=== PATIENT | female | born 1995 | race African-American/Black ===

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

== ENCOUNTER → 2017-04-13 | Outpatient (CLI) | payer OTHER ==
--- NOTE | 2017-04-13 11:05 | REP ---
Clinical: Anatomical evaluation. Comparison: None . Findings: Examination demonstrates a single live intrauterine in cephalic presentation. motion is identified by technologist. Placenta is noted right fundal and grade zero without evidence for placenta previa or abruption. Amniotic fluid volume is normal. Cervix measures 3.9 cm in length and appears closed. No evidence for nuchal cord. Gestational age by LMP 26 weeks 5 days with SB 07/15/2017 . Gestational age by current measurements 22 weeks 0 days with SB 08/17/2017 . FHR equals 139 beats per minute. BPD 5.4 cm 22 weeks 3 days HC 20.2 cm 22 weeks 2 days AC 16.7 cm 21 weeks 5 days FL 3.9 cm 22 weeks 3 days HL 3.7 cm 23 weeks 0 days HC/AC ratio 1.21 Estimated weight 474 grams ( 49th percentile based on age by current measurements ). Anatomical assessment demonstrates normal structures including cranium, choroid plexus, cavum, cerebellum/posterior fossa, facial features, lungs, four-chamber heart/ventricular outflow tracts, diaphragm, stomach, cord insertion/three-vessel cord, kidneys/bladder, spine, and extremities. Impression: Single live intrauterine in cephalic presentation. Anatomical assessment is complete and normal. Signed by Jonah Lozano MD 04/13/2017 10:56 A
[2017-04-13 12:22] LABS: BASO # 0.1 10^3/uL (0.0-0.2); BASO % 0.4 % (0.0-1.0); EOS # 0.2 10^3/uL (0.0-0.50); IMMATURE GRANULOCYTE % 0.9 % (0-0); LYMPH % 17.4 % (24.0-44.0); MEAN CORPUSCULAR HGB CONC 36.4 g/dl (32.0-36.5); MEAN CORPUSCULAR VOLUME 79.8 fl (80.0-96.0); MONO # 0.4 10^3/uL (0.0-0.8); MONO % 3.8 % (0.0-5.0); NEUTROPHILS # 8.8 10^3/uL (1.8-7.7); NEUTROPHILS % 75.5 % (36.0-66.0); PLATELET COUNT, AUTOMATED 201 10^3/uL (150-450); RED CELL DISTRIBUTION WIDTH 12.7 % (11.5-14.5); WHITE BLOOD COUNT 11.7 10^3/uL (4.0-10.0)
[2017-04-14 11:09] LABS: HBsAg Prenatal NEGATIVE (NEGATIVE)
== END ==
LOC: M RAD 09:18
PROVIDERS: ATTEND Obstetrics & Gynecology
DX: Z34.82 Encounter for supervision of other normal pregnancy, second trimester (principal)

== ENCOUNTER → 2017-05-25 | Outpatient (CLI) | payer OTHER ==
[2017-05-25 18:36] LABS: BASO # 0.1 10^3/uL (0.0-0.2); BASO % 0.4 % (0.0-1.0); EOS # 0.2 10^3/uL (0.0-0.50); EOS % 1.8 % (0.0-3.0); IMMATURE GRANULOCYTE # 0.1 10^3/uL (0-0); LYMPH # 2.1 10^3/uL (1.5-6.5); LYMPH % 16.6 % (24.0-44.0); MEAN CORPUSCULAR HEMOGLOBIN 28.3 pg (27.0-33.0); MEAN CORPUSCULAR HGB CONC 35.8 g/dl (32.0-36.5); MEAN CORPUSCULAR VOLUME 79.3 fl (80.0-96.0); MONO # 0.4 10^3/uL (0.0-0.8); MONO % 3.4 % (0.0-5.0); NEUTROPHILS # 9.8 10^3/uL (1.8-7.7); NEUTROPHILS % 76.8 % (36.0-66.0); PLATELET COUNT, AUTOMATED 205 10^3/uL (150-450); RED CELL DISTRIBUTION WIDTH 12.5 % (11.5-14.5); WHITE BLOOD COUNT 12.8 10^3/uL (4.0-10.0)
== END ==
LOC: M SMT 10:54
DX: Z34.83 Encounter for supervision of other normal pregnancy, third trimester (principal)

== ENCOUNTER 2017-06-10 11:04 | Emergency (ER) | payer OTHER ==
[2017-06-10 11:41] LABS: KETONE, URINE AUTO RFX 2+ mg/dL (NEGATIVE); LEUKOCYTE ESTERASE UR AUTO RFX 2+ (NEGATIVE); MUCUS, URINE RFX SMALL (NEGATIVE); NITRITE, URINE AUTO RFX NEGATIVE (NEGATIVE); RBC, URINE AUTO RFX 1 /HPF (0-3); SPECIFIC GRAVITY UR AUTO RFX 1.025 (1.002-1.035); SQUAM EPITHELIAL CELL UR AURFX 3 /HPF (0-6); WBC, URINE AUTO RFX 3 /HPF (0-3)
[2017-06-10] MEDS: NS 1,000 ML IV (11:55)
[2017-06-10] MEDS: ONDANSETRON 4MG/2ML VIAL (J2405) IV (11:55)
== END 2017-06-10 13:29 | disposition home or self-care (01) ==
LOC: M ED 11:04
DX: O21.8 Other vomiting complicating pregnancy (principal); Z3A.30 30 weeks gestation of pregnancy; Z79.899 Other long term (current) drug therapy
CPT/HCPCS: J2405

== ENCOUNTER 2017-06-30 16:34 | Emergency (ER) | payer OTHER | END 2017-06-30 18:51 | disposition home or self-care (01) | LOC: M ED 16:34 | DX: O99.89 Other specified diseases and conditions complicating pregnancy, childbirth and the puerperium (principal); L73.9 Follicular disorder, unspecified; Z3A.33 33 weeks gestation of pregnancy; Z79.899 Other long term (current) drug therapy | CPT/HCPCS: 99282 ==

== ENCOUNTER 2017-07-15 10:10 | Inpatient (IN) | payer OTHER ==
[2017-07-15] MEDS: PRENATAL VITAMINS CHEWABLE TABLET PO (09:00)
[2017-07-15] MEDS ORDERED: OXYTOCIN 30 UNITS IN 0.9% NaCl 500ML IV BAG (J2590) As Ordered (11:03)
[2017-07-15] MEDS ORDERED: OXYTOCIN INJ 10 UNITS/ML VIAL (J2590) As Ordered (11:14)
[2017-07-15 11:29] LABS: HEMATOCRIT 32.9 % (36.0-47.0); HEMOGLOBIN 12.1 g/dl (12.0-16.0); MEAN CORPUSCULAR HEMOGLOBIN 28.1 pg (27.0-33.0); MEAN CORPUSCULAR VOLUME 76.5 fl (80.0-96.0); PLATELET COUNT, AUTOMATED 161 10^3/uL (150-450); RED CELL DISTRIBUTION WIDTH 13.2 % (11.5-14.5); WHITE BLOOD COUNT 12.4 10^3/uL (4.0-10.0)
[2017-07-15 11:31] LABS: MEAN CORPUSCULAR HGB CONC 36.8 g/dl (32.0-36.5)
[2017-07-15 11:35] LABS: CORD GAS ABE V -4.1; CORD GAS HCO3 V 22.5 MEQ/L; CORD GAS O2 SAT V 61.9 %; CORD GAS PCO2 V 46.9 mmHg; CORD GAS PH V 7.299 UNITS; CORD GAS PO2 V 26.6 mmHg; CORD GAS SBC V 20.4 MEQ/L; CORD GAS TCO2 V 23.9 MEQ/L
[2017-07-15 11:37] LABS: CORD GAS ABE A -2.5; CORD GAS HCO3 A 25.3 MEQ/L; CORD GAS O2 SAT A 51.9 %; CORD GAS PCO2 A 56.3 mmHg; CORD GAS SBC A 21.4 MEQ/L
[2017-07-15] MEDS: LIDOCAINE 1% MDV INJ 50 ML VIAL INFIL (12:15)
[2017-07-15] MEDS ORDERED: DOCUSATE SODIUM 100 MG CAP PO (12:15)
[2017-07-15] MEDS ORDERED: METHYLERGONOVINE MALEATE 0.2 MG TAB PO (12:15)
[2017-07-15] MEDS: OXYTOCIN INJ 10 UNITS/ML VIAL (J2590) IM (12:15)
[2017-07-15] MEDS: METHYLERGONOVINE MALEATE 0.2 MG/ML VIAL (J2210) IM (12:30)
[2017-07-15] MEDS: RHOGAM 300 MCG (1500 IU) INJ (J2790) IM (13:01)
[2017-07-15] MEDS: MEASLES,MUMPS,RUBELLA VACCINE INJ (MMR-II) (90707) SC (13:01)
[2017-07-15] MEDS: IBUPROFEN 800 MG TAB PO (13:24)
[2017-07-15] MEDS ORDERED: PENICILLIN G POTASSIUM IV 2.5 MU in APPROPRIATE DILUENT 1 EA IV (15:00)
[2017-07-15] MEDS: ACETAMINOPHEN 500 MG TAB PO (19:03)
[2017-07-16] MEDS: IBUPROFEN 800 MG TAB PO (06:17)
[2017-07-16] MEDS: DIBUCAINE 1% OINTMENT 30GM TOP (06:17)
[2017-07-16] MEDS: ACETAMINOPHEN 500 MG TAB PO (06:17)
[2017-07-16] MEDS: PRENATAL VITAMINS CHEWABLE TABLET PO (11:05)
[2017-07-16] MEDS: INFLUENZA QUADRIVALENT PF VACCINE 0.5ML SYRINGE (90686) IM (11:50)
== END 2017-07-16 13:00 | disposition home or self-care (01) | DRG 775 ==
LOC: M LDO 10:10 → M LDI 10:53 → M OBS 12:49
PROVIDERS: Advanced Practice Midwife
PROC: 10E0XZZ Delivery of Products of Conception, External Approach (ICD-10-PCS; principal; 2017-07-15)
PROC: 0KQM0ZZ Repair Perineum Muscle, Open Approach (ICD-10-PCS; 2017-07-15)
DX: O60.14X0 Preterm labor third trimester with preterm delivery third trimester, not applicable or unspecified (principal); Z37.0 Single live birth; Z3A.35 35 weeks gestation of pregnancy; O70.1 Second degree perineal laceration during delivery; Z87.51 Personal history of pre-term labor

== ENCOUNTER → 2018-08-11 | Outpatient (REF) | payer OTHER, SELFPAY ==
[~2018-08-11] MED LIST changes: +FLINCHW PO; +IBUP-1114 PO; +KEFL500C17 PO; +MAPA500T2 PO; +ZOFR4TAB14 PO
[2018-08-11 23:30] LABS: CHLAMYDIA DNA AMPLIFICATION POSITIVE (NEGATIVE); GC DNA AMPLIFICATION NEGATIVE (NEGATIVE)
== END ==
LOC: M LAB REF 12:31
PROVIDERS: ATTEND Physician Assistant Medical
DX: Z11.3 Encounter for screening for infections with a predominantly sexual mode of transmission (principal)

== ENCOUNTER → 2019-10-04 | Outpatient (REF) | payer OTHER ==
[2019-10-04 20:31] LABS: CHLAMYDIA DNA AMPLIFICATION NEGATIVE (NEGATIVE); GC DNA AMPLIFICATION NEGATIVE (NEGATIVE)
== END ==
LOC: M LAB REF 16:05
PROVIDERS: ATTEND Internal Medicine
DX: Z72.51 High risk heterosexual behavior (principal)

== ENCOUNTER 2021-07-14 10:03 | Outpatient (RCR) | payer OTHER ==
[~2021-07-14 10:03] MED LIST changes: -ACET120S PO; +ACET125EL PO
== END 2021-07-26 ==
LOC: M PT 10:03
PROVIDERS: ATTEND Internal Medicine
DX: I89.0 Lymphedema, not elsewhere classified (principal)

== ENCOUNTER → 2022-07-11 | Outpatient (REF) | payer OTHER | LOC: M LAB REF 14:58 | PROVIDERS: ATTEND Internal Medicine | DX: R19.7 Diarrhea, unspecified (principal) ==

== ENCOUNTER 2022-08-16 15:45 | Outpatient (RCR) | payer OTHER | END 2022-08-26 | LOC: M PT 15:45 | PROVIDERS: ATTEND Internal Medicine | DX: I89.0 Lymphedema, not elsewhere classified (principal) ==

== ENCOUNTER 2022-09-14 13:51 | Outpatient (RCR) | payer OTHER | END 2022-09-25 | LOC: M PT 13:51 | PROVIDERS: ATTEND Internal Medicine | DX: I89.0 Lymphedema, not elsewhere classified (principal) ==

== ENCOUNTER 2022-10-04 08:30 | Outpatient (RCR) | payer OTHER | END 2022-10-26 | LOC: M PT 08:30 | PROVIDERS: ATTEND Internal Medicine | DX: I89.0 Lymphedema, not elsewhere classified (principal) ==

== ENCOUNTER → 2023-05-11 | Outpatient (REF) | payer OTHER | LOC: M LAB REF 17:38 | PROVIDERS: ATTEND Internal Medicine | DX: R19.7 Diarrhea, unspecified (principal) ==